=== PATIENT | female | born 1960 | race Two or more races ===

== ENCOUNTER 2018-12-02 06:56 | Outpatient (CLI) | payer OTHER | END 2018-12-02 07:29 | disposition home or self-care (01) | LOC: LAB 06:56 | DX: D50.8 Other iron deficiency anemias (principal); E83.51 Hypocalcemia; D68.9 Coagulation defect, unspecified; E03.8 Other specified hypothyroidism; N39.0 Urinary tract infection, site not specified; Z13.1 Encounter for screening for diabetes mellitus; E78.00 Pure hypercholesterolemia, unspecified ==

== ENCOUNTER 2018-12-02 08:29 | Inpatient (IN) | payer OTHER ==
[~2018-12-02] VITALS: Ht 152.4 cm; Wt 68.9 kg
[2018-12-15] MEDS ORDERED: COZAAR50 MG PO (11:03)
[2018-12-15] MEDS ORDERED: SYNTHROID75 MCG PO (11:03)
[2018-12-22] MEDS ORDERED: PERCOCET 5-3251 EACH PO (07:00)
== END 2018-12-22 09:34 | disposition home or self-care (01) | DRG 743 ==
LOC: SURG 12-12 09:30 → OB/GYN 12-19 05:50 → O/R 12-19 05:50 → SURG 12-19 07:00 → OB/GYN 12-19 11:26
PROVIDERS: ADMIT Specialist
PROC: 0JQC0ZZ Repair Pelvic Region Subcutaneous Tissue and Fascia, Open Approach (ICD-10-PCS; 2018-12-19)
PROC: 0UT97ZZ Resection of Uterus, Via Natural or Artificial Opening (ICD-10-PCS; principal; 2018-12-19 07:00)
PROC: 0JQC0ZZ Repair Pelvic Region Subcutaneous Tissue and Fascia, Open Approach (ICD-10-PCS; 2018-12-19 07:00)
DX: N80.0 Endometriosis of uterus (principal); N72 Inflammatory disease of cervix uteri; N81.11 Cystocele, midline; N81.6 Rectocele

== ENCOUNTER 2022-05-23 14:14 | Outpatient (CLI) | payer OTHER ==
[~2022-05-23 14:14] MED LIST: COZAAR50 MG PO; PERCOCET 5-3251 EACH PO; SYNTHROID75 MCG PO
== END 2022-05-23 14:28 | disposition home or self-care (01) ==
LOC: MRI 14:14
PROVIDERS: ATTEND Specialist
DX: M25.562 Pain in left knee (principal); E03.9 Hypothyroidism, unspecified
CPT/HCPCS: 73718

== ENCOUNTER 2022-06-21 09:48 | Emergency (ER) | payer OTHER ==
[~2022-06-21] VITALS: Ht 152.4 cm; Wt 72.6 kg
== END 2022-06-21 14:11 | disposition home or self-care (01) ==
LOC: ER 09:48
DX: I10 Essential (primary) hypertension (principal); F41.9 Anxiety disorder, unspecified

== ENCOUNTER 2024-07-02 08:30 | Outpatient (CLI) | payer OTHER | END 2024-07-02 08:37 | disposition home or self-care (01) | LOC: SONOGRAMA 08:30 | PROVIDERS: ATTEND Pathology Anatomic Pathology & Clinical Pathology | DX: D34 Benign neoplasm of thyroid gland (principal); E06.3 Autoimmune thyroiditis; E04.1 Nontoxic single thyroid nodule ==

== ENCOUNTER 2024-10-30 09:44 | Outpatient (CLI) | payer OTHER | END 2024-10-30 09:46 | disposition home or self-care (01) | LOC: MAMO-SONO 09:44 | PROVIDERS: ATTEND Specialist | DX: R22.42 Localized swelling, mass and lump, left lower limb (principal); Z12.39 Encounter for other screening for malignant neoplasm of breast; Z12.31 Encounter for screening mammogram for malignant neoplasm of breast ==